=== PATIENT | male | born 1980 | race American Indian/Alaskan Native ===

== ENCOUNTER 2016-09-29 01:39 | Emergency (ER) | payer BC, MEDICAID, OTHER ==
[2016-09-29 02:05] VITALS: BMI 41.3
[2016-09-29 02:11] VITALS: BP 144/98; PULSE 105; RESP 18; TEMP 98.6; O2SAT 97
--- NOTE | 2016-09-29 02:38 | ED PDOC ---
Arrival/HPI <RasheedaAlok - Last Filed: 09/29/16 04:07> - General Historian: Patient - History of Present Illness Time/Duration: Prior to Arrival Symptom Onset: Sudden Symptom Course: Unchanged Severity Level: 10 <Patrice Box - Last Filed: 09/29/16 04:34> - General Chief Complaint: Dental Pain Time Seen by Provider: 09/29/16 02:16 - History of Present Illness Narrative History of Present Illness (Text): 35 M with pmh of NIDDM presents to the emergency department with tooth pain. Pt states that prior to arrival he was eating some food and he started getting a severe L sided tooth pain. He states that the pain is radiating to his head and neck. He states that he took Percocet at home for the pain with o releif. He denies any dizziness, f/c, shortness of breath, chest pain, abd pain, n/v/d. (Patrice Box) Past Medical History - Provider Review Nursing Documentation Reviewed: Yes - Infectious Disease Hx of Infectious Diseases: None - Tetanus Immunization Tetanus Immunization: Up to Date - Past Medical History Past Medical History: No Previous - Cardiac Hx Hypertension: Yes - Pulmonary Hx Respiratory Disorders: No (SMOKING HISTORY 2PKS A DAY) Hx Tuberculosis: No - Neurological Hx Seizures: No Hx Transient Ischemic Attacks (TIA): No - HEENT Hx HEENT Disorder: Yes (EYE SURGERY(RIGHT)) - Endocrine/Metabolic Hx Diabetes Mellitus Type 2: Yes - Hematological/Oncological Hx Cancer: No - Integumentary Hx Eczema: Yes (H/O) - Musculoskeletal/Rheumatological Hx Falls: No - Gastrointestinal Hx Gastrointestinal Disorders: No - Genitourinary/Gynecological Hx Sexually Transmitted Diseases: No - Psychiatric Hx Anxiety: Yes Hx Substance Use: No - Past Surgical History Past Surgical History: No Previous - Anesthesia Hx Anesthesia: Yes Hx Anesthesia Reactions: No Hx Malignant Hyperthermia: No - Suicidal Assessment Feels Threatened In Home Enviroment: No <Patrice Box - Last Filed: 09/29/16 04:34> Family/Social History - Physician Review Nursing Documentation Reviewed: Yes Family/Social History: Diabetes Smoking Status: Light Smoker < 10 Cigarettes Daily Hx Alcohol Use: No Hx Substance Use: No Hx Substance Use Treatment: No <Patrice Box - Last Filed: 09/29/16 04:34> Allergies/Home Meds <Alok Vanessa - Last Filed: 09/29/16 04:07> <Patrice Box - Last Filed: 09/29/16 04:34> Allergies/Adverse Reactions: Allergies No Known Allergies Allergy (Verified 01/20/16 21:40) Review of Systems - Physician Review All systems were reviewed & negative as marked: Yes - Review of Systems Eyes: absent: Vision Changes ENT: Other (tooth pain ). absent: TMJ Pain, Sore Throat, Rhinorrhea, Sinus Congestion Respiratory: absent: SOB, Cough, Sputum Cardiovascular: absent: Chest Pain, Palpitations Gastrointestinal: absent: Abdominal Pain, Nausea, Vomiting <Patrice Box - Last Filed: 09/29/16 04:34> Physical Exam Vital Signs Reviewed: Yes Temperature: Afebrile Blood Pressure: Hypertensive Pulse: Tachycardic Respiratory Rate: Normal Appearance: Positive for: Well-Appearing, Non-Toxic, Comfortable Pain Distress: Mild Mental Status: Positive for: Alert and Oriented X 3 - Systems Exam Head: Present: Atraumatic, Normocephalic Pupils: Present: PERRL Extroacular Muscles: Present: EOMI Conjunctiva: Present: Normal Mouth: Present: Moist Mucous Membranes, Normal Tounge, Other (L molar Tooth tenderness/ sensitivity on palpation; no pahryngeal erythema ) Pharnyx: No: ERYTHEMA, TONSILS ENLARGED, Peritonsilar Swelling Neck: Present: Normal Range of Motion. No: Lymphadenopathy Respiratory/Chest: Present: Clear to Auscultation, Good Air Exchange. No: Respiratory Distress, Accessory Muscle Use Cardiovascular: Present: Regular Rate and Rhythm, Normal S1, S2. No: Murmurs Abdomen: Present: Normal Bowel Sounds. No: Tenderness, Distention, Peritoneal Signs Upper Extremity: Present: Normal Inspection. No: Cyanosis, Edema Lower Extremity: Present: Normal Inspection. No: Edema Neurological: Present: GCS=15, CN II-XII Intact, Speech Normal Skin: Present: Warm, Dry, Normal Color. No: Rashes Psychiatric: Present: Alert, Oriented x 3, Normal Insight, Normal Concentration <Patrice Box - Last Filed: 09/29/16 04:34> Vital Signs Temp Pulse Resp BP Pulse Ox 09/29/16 02:08 98.6 F 105 H 18 144/98 H 97 Medical Decision Making <Alok Vanessa - Last Filed: 09/29/16 04:07> <Patrice Box - Last Filed: 09/29/16 04:34> ED Course and Treatment: Pt seen and evaluated with resident. Pt, whose past medical history includes NIDDM, presented for left-sided dental pain. Aware and agree with HPI, clinical findings, plan, and management. Plan: -- Toradol -- Percocet -- Reassess and disposition (Alok Vanessa) Impression: 35 M with pmh of NIDDM presents to the ED with L lower sided tooth pain. Differential Diagnosis included but are not limited to: tooth pain vs abscess Plan: - Pain control - Toradol 60mg IM - Reassess and disposition Progress Notes: 09/29/16 03:01 Still complaining of severe pain. Percocet 10mg stat ordered 09/29/16 03:45 Pt resting comfortably in bed. States tat he feels much better. On reevaluation the patient feels better and is in no acute distress. I have discussed the results and plan with the patient, who expresses understanding. Patient given the opportunity to ask question, all questions were answered and there is agreement with the plan to discharge the patient home. Patient is stable for discharge. Patient was instructed to follow up with physician/clinic in 1-2 days or return if symptoms persist/worsen or new concerning symptoms arise. (Patrice Box) - Medication Orders Current Medication Orders: Discontinued Medications Famotidine (Pepcid) 20 mg PO STAT STA Stop: 09/29/16 03:51 Last Admin: 09/29/16 04:08 Dose: 20 mg Ketorolac Tromethamine (Toradol) 60 mg IM STAT STA Stop: 09/29/16 02:35 Last Admin: 09/29/16 02:50 Dose: 60 mg Oxycodone/Acetaminophen (Percocet 10/325 Mg Tab) 1 tab PO STAT STA Stop: 09/29/16 03:02 Last Admin: 09/29/16 03:12 Dose: 1 tab - PA / CRYSTALIZER / Resident Statement / has reviewed & agrees with the documentation as recorded. / has examined the patient and agrees with the treatment plan. <Alok Vanessa - Last Filed: 09/29/16 04:07> Disposition/Present on Arrival <Alok Vanessa - Last Filed: 09/29/16 04:07> - Present on Arrival Any Indicators Present on Arrival: Yes History of DVT/PE: No History of Uncontrolled Diabetes: Yes Urinary Catheter: No History of Decub. Ulcer: No History Surgical Site Infection Following: None - Disposition Have Diagnosis and Disposition been Completed?: Yes Disposition Time: 03:45 Patient Plan: Discharge <Patrice Box - Last Filed: 09/29/16 04:34> - Disposition Diagnosis: Tooth pain Disposition: HOME/ ROUTINE Condition: IMPROVED Additional Instructions: Amaury López, thank you for letting us take care of you today. Your provider was Dr Vanessa. You were treated for Tooth pain. The emergency medical care you received today was directed at your acute symptoms. If you were prescribed any medication, please fill it and take as directed. It may take several days for your symptoms to resolve. Return to the Emergency Department if your symptoms worsen, do not improve, or if you have any other problems. Please contact your doctor or call one of the physicians/clinics you have been referred to that are listed on the Patient Visit Information form that is included in your discharge packet. Bring any paperwork you were given at discharge with you along with any medications you are taking to your follow up visit. Our treatment cannot replace ongoing medical care by a primary care provider (PCP) outside of the emergency department. [facility]. Follow up with your Dentist with in next 1-2 days. If your symptoms worsen come back to the emergency department.
[2016-09-29] MEDS ORDERED: Oxycodone/Acetaminophen 10/325 mg Tab PO STA (03:01)
== END 2016-09-29 04:46 | disposition home or self-care (01) ==
LOC: ED 01:39
DX: K08.89 Other specified disorders of teeth and supporting structures (principal)
CPT/HCPCS: 96372; 99282; J1885

== ENCOUNTER 2017-11-16 21:09 | Emergency (ER) | payer MEDICAID, OTHER ==
[2017-11-16 21:13] VITALS: TEMP 97.9
[2017-11-16 21:22] VITALS: BMI 37.6
[2017-11-16] MEDS ORDERED: Sodium Chloride 0.9% 1,000 ML IV STA (21:49)
--- NOTE | 2017-11-16 21:53 | ED PDOC ---
Arrival/HPI - General Historian: Patient - History of Present Illness Time/Duration: 24 hours Symptom Course: Intermittent Activities at Onset: Light Context: Home <Nafisa Candelaria - Last Filed: 11/17/17 00:22> <Elías Odell DO - Last Filed: 11/17/17 06:04> - General Chief Complaint: Shortness Of Breath Time Seen by Provider: 11/16/17 21:35 - History of Present Illness Narrative History of Present Illness (Text): 11/16/17 21:49 This is a 37 year old male with PMH of substance abuse, uncontrolled DM not on insulin, schizoaffective disorder, depression and anxiety presenting to the ER for epigastric pain, nausea and SOB that began this morning. Patient states he woke up at 5am and felt sharp epigastric pain that has been intermittent throughout the day. Pain is rate at 8/10 at worst and non radiating. Nothing makes the pain better or worse. Has admits to having good appetite. He denies having similar symptoms in the past. He denies chest pain, headaches, fevers, vomiting, chills, back pain, recent sickness, recent travel, numbness, loss of sensation and muscle weakness. He currently does not take any medications. PCP is Dr. Vieyra (Nafisa Candelaria) Past Medical History - Provider Review Nursing Documentation Reviewed: Yes - Infectious Disease Hx of Infectious Diseases: None - Tetanus Immunization Tetanus Immunization: Up to Date - Past Medical History Past Medical History: No Previous - Cardiac Hx Hypertension: Yes - Pulmonary Hx Respiratory Disorders: No (SMOKING HISTORY 2PKS A DAY) Hx Tuberculosis: No - Neurological Hx Seizures: No Hx Transient Ischemic Attacks (TIA): No - HEENT Hx HEENT Disorder: Yes (EYE SURGERY(RIGHT)) - Endocrine/Metabolic Hx Diabetes Mellitus Type 2: Yes - Hematological/Oncological Hx Cancer: No - Integumentary Hx Eczema: Yes (H/O) - Musculoskeletal/Rheumatological Hx Falls: No - Gastrointestinal Hx Gastrointestinal Disorders: No - Genitourinary/Gynecological Hx Sexually Transmitted Diseases: No - Psychiatric Hx Anxiety: Yes Hx Substance Use: No - Past Surgical History Past Surgical History: No Previous - Anesthesia Hx Anesthesia: Yes Hx Anesthesia Reactions: No Hx Malignant Hyperthermia: No - Suicidal Assessment Feels Threatened In Home Enviroment: No <Nafisa Candelaria - Last Filed: 11/17/17 00:22> Family/Social History - Physician Review Nursing Documentation Reviewed: Yes Family/Social History: Unknown Family HX Smoking Status: Light Smoker < 10 Cigarettes Daily Hx Alcohol Use: No Hx Substance Use: No Hx Substance Use Treatment: No <Nafisa Candelaria - Last Filed: 11/17/17 00:22> Allergies/Home Meds <Nafisa Candelaria - Last Filed: 11/17/17 00:22> <Elías Odell DO - Last Filed: 11/17/17 06:04> Allergies/Adverse Reactions: Allergies No Known Allergies Allergy (Verified 01/20/16 21:40) Review of Systems - Physician Review All systems were reviewed & negative as marked: Yes - Review of Systems Constitutional: Normal. absent: Fevers Eyes: Normal. absent: Vision Changes ENT: Normal. absent: Hearing Changes Respiratory: SOB. absent: Cough, Wheezing Cardiovascular: Normal. absent: Chest Pain, Palpitations Gastrointestinal: Abdominal Pain, Nausea. absent: Diarrhea, Vomiting, Hematochezia, Hematemesis Genitourinary Male: Normal. absent: Dysuria Musculoskeletal: Normal. absent: Back Pain Skin: Normal Neurological: Normal. absent: Headache Endocrine: Normal Hemo/Lymphatic: Normal <Nafisa Candelaria - Last Filed: 11/17/17 00:22> Physical Exam Vital Signs Reviewed: Yes Temperature: Afebrile Blood Pressure: Normal Pulse: Regular Respiratory Rate: Normal Appearance: Positive for: Well-Appearing, Non-Toxic, Comfortable Pain Distress: None Mental Status: Positive for: Alert and Oriented X 3 - Systems Exam Head: Present: Atraumatic, Normocephalic Pupils: Present: PERRL Extroacular Muscles: Present: EOMI Conjunctiva: Present: Normal Mouth: Present: Moist Mucous Membranes Neck: Present: Normal Range of Motion Respiratory/Chest: Present: Clear to Auscultation, Good Air Exchange. No: Respiratory Distress, Accessory Muscle Use Cardiovascular: Present: Regular Rate and Rhythm, Normal S1, S2. No: Murmurs Abdomen: Present: Normal Bowel Sounds, Other (epigastric pain ). No: Distention , Peritoneal Signs, Rebound, Guarding, McBurney's Point Tender Back: Present: Normal Inspection Upper Extremity: Present: Normal Inspection. No: Cyanosis, Edema Lower Extremity: Present: Normal Inspection. No: Edema Neurological: Present: Speech Normal, Motor Func Grossly Intact, Normal Sensory Function Skin: Present: Warm, Dry, Normal Color. No: Rashes Psychiatric: Present: Alert, Oriented x 3, Normal Insight, Normal Concentration <MarbinRaquel dalymillicent - Last Filed: 11/17/17 00:22> Vital Signs Temp Pulse Resp BP Pulse Ox 11/17/17 00:43 85 18 133/87 100 11/16/17 21:12 97.9 F 90 24 124/53 L 98 Medical Decision Making <MarbinaddyNafisa - Last Filed: 11/17/17 00:22> <Elías Odell DO - Last Filed: 11/17/17 06:04> ED Course and Treatment: 11/16/17 21:55 Impression: This is a 37 year old male with PMH of substance abuse, uncontrolled DM not on insulin, schizoaffective disorder, depression and anxiety presenting to the ER for epigastric pain, nausea and SOB that began this morning. Differential not limited to: Gastritis vs angina vs gastroenteritis vs anxiety vs gastroparesis Plan: -Blood work, lipase -troponin -CXRAY -VBG -zofran, pepcid -CT abd Progress: 11/16/17 23:41 Patient is resting comfortably, no acute distress, vitals are stable and afebrile. 11/17/17 00:22 CT abd: There is significant marked wall thickening of the stomach and it measures 1.8 cm with edema and the findings are suspicious for gastritis. Followup is advised after appropriate treatment to evaluate underlying wall. (Nafisa Candelaria) - Lab Interpretations Lab Results: 11/16/17 22:10 11/16/17 22:10 Lab Results 11/16/17 22:10: Sodium 137, Chloride 102, Potassium 3.7, Carbon Dioxide 24, Anion Gap 15, BUN 9, Creatinine 0.6 L, Est GFR ( Amer) > 60, Est GFR (Non -Af Amer) > 60, Random Glucose 153 H, Calcium 8.7, Magnesium 1.6 L, Total Bilirubin 0.9, AST 17, ALT 27, Alkaline Phosphatase 69, Troponin I < 0.01, Total Protein 6.9, Albumin 3.9, Globulin 3.0, Albumin/Globulin Ratio 1.3, Lipase 52 11/16/17 22:10: pO2 181 H, VBG pH 7.43, VBG pCO2 40.0, VBG HCO3 26.5, VBG Total CO2 27.7, VBG O2 Sat (Calc) 100.3 H, VBG Base Excess 2.0, VBG Potassium 4.5, Sodium 135.0, Chloride 103.0, Glucose 157 H, Lactate 1.0, FiO2 21.0, Venous Blood Potassium 4.5 11/16/17 22:10: WBC 14.5 H, RBC 4.78, Hgb 14.7, Hct 42.2, MCV 88.3, MCH 30.8, MCHC 34.8, RDW 11.9, Plt Count 357, MPV 9.2, Gran % 71.9 H, Lymph % (Auto) 22.7 , Bacon % (Auto) 4.4, Eos % (Auto) 0.7 L, Baso % (Auto) 0.3, Gran # 10.44 H, Lymph # (Auto) 3.3, Bacon # (Auto) 0.6, Eos # (Auto) 0.1, Baso # (Auto) 0.04 - RAD Interpretation Radiology Orders: 11/16/17 21:49 CHEST PORTABLE [RAD] Stat 11/16/17 22:35 ABD & PELVIS IV CONTRAST ONLY [CT] Stat - Medication Orders Current Medication Orders: Discontinued Medications Al Hydrox/Mg Hydrox/Simethicone (Maalox Plus 30 Ml) 30 ml PO STAT STA Stop: 11/17/17 00:16 Last Admin: 11/17/17 00:31 Dose: 30 ml Belladonna/Phenobarbital ( Elixir) 10 ml PO STAT STA Stop: 11/17/17 00:16 Last Admin: 11/17/17 00:31 Dose: 10 ml Famotidine (Pepcid) 20 mg IVP STAT STA Stop: 11/16/17 21:50 Last Admin: 11/16/17 22:10 Dose: 20 mg IVP Administration Document 11/16/17 22:10 CNR (Rec: 11/16/17 22:10 CNR [id number]) Charges for Administration # of IVP Administrations 1 Sodium Chloride (Sodium Chloride 0.9%) 1,000 mls @ 1,000 mls/hr IV .Q1H STA Stop: 11/16/17 22:48 Last Admin: 11/16/17 22:10 Dose: 1,000 mls/hr eMAR Start Stop Document 11/16/17 22:10 CNR (Rec: 11/16/17 22:10 CNR [id number]) Intravenous Solution Start Date 11/16/17 Start Time 22:10 End Date 11/16/17 End time 23:10 Total Infusion Time 60 Lidocaine HCl (Lidocaine 2% Viscous) 10 ml MM STAT STA Stop: 11/17/17 00:16 Last Admin: 11/17/17 00:31 Dose: 10 ml Ondansetron HCl (Zofran Inj) 4 mg IVP STAT STA Stop: 11/16/17 21:50 Last Admin: 11/16/17 22:10 Dose: 4 mg IVP Administration Document 11/16/17 22:10 CNR (Rec: 11/16/17 22:10 CNR [id number]) Charges for Administration # of IVP Administrations 1 - PA / TEA TASTER / Resident Statement RICO has reviewed & agrees with the documentation as recorded. RICO has examined the patient and agrees with the treatment plan. <Nafisa Candelaria - Last Filed: 11/17/17 00:22> Disposition/Present on Arrival - Present on Arrival History of DVT/PE: No History of Uncontrolled Diabetes: Yes Urinary Catheter: No History of Decub. Ulcer: No History Surgical Site Infection Following: None <Nafisa Candelaria - Last Filed: 11/17/17 00:22> - Present on Arrival Any Indicators Present on Arrival: No - Disposition Have Diagnosis and Disposition been Completed?: Yes Disposition Time: 00:10 <Elías Odell DO - Last Filed: 11/17/17 06:04> - Disposition Diagnosis: Gastritis Disposition: HOME/ ROUTINE Condition: IMPROVED Discharge Instructions (ExitCare): Gastritis (DC) Additional Instructions: DEVON OLIVER, thank you for letting us take care of you today. The emergency medical care you received today was directed at your acute symptoms. If you were prescribed any medication, please fill it and take as directed. It may take several days for your symptoms to resolve. Return to the Emergency Department if your symptoms worsen, do not improve, or if you have any other problems. Please contact your doctor or call one of the physicians/clinics you have been referred to that are listed on the Patient Visit Information form that is included in your discharge packet. Bring any paperwork you were given at discharge with you along with any medications you are taking to your follow up visit. Our treatment cannot replace ongoing medical care by a primary care provider outside of the emergency department. Thank you for allowing the [facility] team to be part of your care today. Follow up with your primary care doctor in 2-3 days for re-evaluation and further management. Prescriptions: Omeprazole Magnesium [Prilosec Otc] 20 mg PO DAILY #14 tablet. Ranitidine HCl [Zantac] 150 mg PO BID #14 tablet Referrals: Camelia Vieyra MD [Family Provider] - Follow up with primary Forms: [email or web address] ([place]i)
[2017-11-16 22:17] LABS: VENOUS BLOOD GAS PO2 181 mm/Hg (30-55); VENOUS BLOOD PH 7.43 (7.32-7.43)
[2017-11-16 22:18] LABS: BASO # 0.04 K/mm3 (0.0-2.0); BASO % 0.3 % (0.0-3.0); EOS # 0.1 (0.0-0.7); EOS % 0.7 % (1.5-5.0); GRAN # 10.44 (1.4-6.5); GRAN % 71.9 % (50.0-68.0); HEMOGLOBIN 14.7 g/dL (14.0-18.0); LYMPH # 3.3 (1.2-3.4); LYMPH % 22.7 % (22.0-35.0); MEAN CELL VOLUME 88.3 fl (80.0-105.0); MEAN CORPUSCULAR HEMOGLOBIN 30.8 pg (25.0-35.0); MEAN CORPUSCULAR HGB CONC 34.8 g/dl (31.0-37.0); MEAN PLATELET VOLUME 9.2 fl (7.0-11.0); MONO # 0.6 (0.1-0.6); MONO % 4.4 % (1.0-6.0); RBC 4.78 10^6/uL (3.5-6.1); RED CELL DISTRIBUTION WIDTH 11.9 % (11.5-14.5); WHITE BLOOD COUNT 14.5 10^3/ul (4.5-11.0)
[2017-11-16 22:26] LABS: ALB/GLOB RATIO 1.3 (1.1-1.8); ALBUMIN 3.9 g/dL (3.0-4.8); ALT/SGPT 27 U/L (7-56); AST/SGOT 17 U/L (17-59); BLOOD UREA NITROGEN 9 mg/dL (7-21); CALCIUM 8.7 mg/dL (8.4-10.5); GFR AFRICAN-AMERICAN > 60; GFR NON-AFRICAN AMERICAN > 60; LIPASE 52 U/L (23-300)
[2017-11-16 22:37] LABS: TROPONIN I < 0.01 ng/mL
[2017-11-16] MEDS ORDERED: Iohexol 350 MG/100 ML VIAL ONE (22:48)
[2017-11-17] MEDS ORDERED: Atrop/Hyosc/Scopal/PB Elixir (120 ml) PO STA (00:15)
[2017-11-17] MEDS ORDERED: Alum-Mag Hydrox-Simethicone Susp (30 mL) PO STA (00:15)
[2017-11-17 00:44] VITALS: BP 133/87; PULSE 85; RESP 18; O2SAT 100
--- NOTE | 2017-11-17 08:59 | CT ---
Date of service: 11/16/2017 PROCEDURE: CT Abdomen and Pelvis with contrast HISTORY: upper abdominal pain COMPARISON: None. TECHNIQUE: Contrast dose: 100 mL Omnipaque 350 Radiation dose: Total exam DLP = 1348.88 mGy-cm. This CT exam was performed using one or more of the following dose reduction techniques: Automated exposure control, adjustment of the mA and/or kV according to patient size, and/or use of iterative reconstruction technique. FINDINGS: LOWER THORAX: Unremarkable. LIVER: Unremarkable. No gross lesion or ductal dilatation. GALLBLADDER AND BILE DUCTS: Unremarkable. PANCREAS: Unremarkable. No gross lesion or ductal dilatation. SPLEEN: Unremarkable. ADRENALS: Unremarkable. No mass. KIDNEYS AND URETERS: Unremarkable. No hydronephrosis. No solid mass. VASCULATURE: Unremarkable. No aortic aneurysm. BOWEL: There is marked circumferential mural thickening of the gastric antrum suspicious for gastritis. Recommend correlation with endoscopy to rule out neoplasm. No other abnormal bowel loops. No bowel obstruction. APPENDIX: Normal appendix. PERITONEUM: Unremarkable. No free fluid. No free air. LYMPH NODES: Unremarkable. No enlarged lymph nodes. BLADDER: Unremarkable. REPRODUCTIVE: Unremarkable. BONES: No acute fracture. OTHER FINDINGS: None. IMPRESSION: Circumferential mural thickening of the gastric antrum suspicious for gastric antritis. Must rule out neoplasm. Followup is recommended with endoscopy to exclude neoplasm. The remainder of the examination is unremarkable. The preliminary findings for this examination were reported by [employer] at 11:59 p.m. on 11/16/2017. There is concurrence of this report with the preliminary findings.
--- NOTE | 2017-11-17 11:09 | RAD ---
Date of service: 11/16/2017 HISTORY: r/o infiltrate COMPARISON: 03/20/2016 FINDINGS: LUNGS: No active pulmonary disease. PLEURA: No significant pleural effusion identified, no pneumothorax apparent. CARDIOVASCULAR: Normal. OSSEOUS STRUCTURES: No significant abnormalities. VISUALIZED UPPER ABDOMEN: Normal. OTHER FINDINGS: None. IMPRESSION: No active disease.
--- NOTE | 2017-11-17 16:27 | CARD ---
APPROVED REPORT Date of service: 11/16/2017 EKG Measurement Heart [id number] <Conclusion> Sinus rhythm with marked sinus arrhythmia Otherwise normal ECG
== END 2017-11-17 00:43 | disposition home or self-care (01) ==
LOC: ED 21:09
DX: K29.70 Gastritis, unspecified, without bleeding (principal); I10 Essential (primary) hypertension; E11.65 Type 2 diabetes mellitus with hyperglycemia; F17.210 Nicotine dependence, cigarettes, uncomplicated
CPT/HCPCS: 71045; 74177; 80053; 82803; 83690; 83735; 84484; 85025; 93005; 96361; 96374; 96375; 99284; J2405; J7030; Q9967